=== PATIENT | female | born 1980 | race Caucasian/White ===

== ENCOUNTER 2016-09-06 09:15 | Emergency (ER) | payer OTHER ==
[~2016-09-06] VITALS: Ht 170.2 cm; Wt 92.5 kg
[2016-09-06 09:15] VITALS: BP 137/102
[~2016-09-06 09:15] MED LIST: ALLOPURINOL 30300 M2 PO; ANUCORT-HC25 MG RECTAL; BENADRYL25 MG PO; CENTRUM SILVER1 EAC4 PO; CLONAZEPAM 1 MG1 M1 PO; CLONIDINE0.1 PO; COLACE100 MG PO; DULCOLAX10 MG; EVENING PRIMRO500 MG PO; FOLIC ACID1 MG PO; GLUCOSAMINE HC500 MG PO; INVEGA SUS156 MG/1 M IM; INVEGA3 MG PO; LEVOTHYROXIN0.075 MG PO; LISINOPRIL10 MG PO; MOBIC15 MG PO; NASONEX17 GM NASAL; PAIN & FEVER325 MG PO; PROZAC20 MG PO; TRILEPTAL300 MG PO; VITAMIN B COMP1 EACH PO; ZANAFLEX4 MG PO; ZOCOR40 MG PO; ZYRTEC10 MG PO
[2016-09-06] MEDS ORDERED: NIKKI 3 MG-0.01 EACH PO (09:23)
[2016-09-06] MEDS ORDERED: TRINATE TABLET1 TAB PO (09:24)
[2016-09-06] MEDS ORDERED: CYMBALTA60 MG PO (09:25)
[2016-09-06] MEDS ORDERED: HYDROCHLOROTH12.5 M1 PO (09:26)
[2016-09-06] MEDS ORDERED: VITAMIN C1000 MG PO (09:27)
[2016-09-06] MEDS ORDERED: MUCINEX600 MG PO (09:29)
[2016-09-06] MEDS ORDERED: LOPRESSOR50 PO (09:29)
[2016-09-06] MEDS ORDERED: SAPHRIS5 MG SL (09:30)
[2016-09-06] MEDS ORDERED: SAVELLA100 MG PO (09:31)
[2016-09-06] MEDS ORDERED: VERAPAMIL ER120 M1 PO (09:32)
[2016-09-06] MEDS ORDERED: LIORESAL 10 MG10 MG PO (09:32)
[2016-09-06] MEDS ORDERED: COMBIVENT INH (09:33)
[2016-09-06] MEDS ORDERED: NEURONTIN 300300 M1 PO (09:33)
[2016-09-06] MEDS ORDERED: GUANFACINE HCL E2 MG PO (09:36)
[2016-09-06] MEDS ORDERED: MELATONIN3 M1 PO (09:37)
[2016-09-06] MEDS ORDERED: AMBIEN 5 MG TABL5 M1 PO (09:38)
[2016-09-06] MEDS ORDERED: OLANZAPINE10 M1 PO (09:38)
[2016-09-06] MEDS ORDERED: ROBAXIN 750 MG750 M1 PO (09:39)
[2016-09-06] MEDS ORDERED: MI ACID LIQUID355 ML PO (09:44)
[2016-09-06] MEDS ORDERED: MAXALT MLT ODT10 M2 PO (09:44)
[2016-09-06] MEDS ORDERED: SUMATRIPTAN SUC50 MG PO (09:45)
[2016-09-06] MEDS ORDERED: DUAC 1.2-5% GEL45 GM TP (09:45)
[2016-09-06] MEDS ORDERED: HYDROCODON-ACE1 EAC5 PO (09:46)
[2016-09-06] MEDS ORDERED: DUONEB 2.5-0.5 M3 ML INH (09:50)
[2016-09-06] MEDS ORDERED: OLANZAPINE5 MG PO (09:51)
[2016-09-06] MEDS ORDERED: NAPROSYN500 MG PO (10:44)
== END 2016-09-06 11:05 | disposition home or self-care (01) ==
LOC: ER 09:15
DX: S63.592A Other specified sprain of left wrist, initial encounter (principal); S63.682A Other sprain of left thumb, initial encounter; F31.9 Bipolar disorder, unspecified; Z98.890 Other specified postprocedural states; Z88.1 Allergy status to other antibiotic agents; Z88.5 Allergy status to narcotic agent; Z88.0 Allergy status to penicillin; Z88.8 Allergy status to other drugs, medicaments and biological substances; F17.210 Nicotine dependence, cigarettes, uncomplicated; W23.1XXA Caught, crushed, jammed, or pinched between stationary objects, initial encounter; Y93.89 Activity, other specified; Y92.098 Other place in other non-institutional residence as the place of occurrence of the external cause; Y99.8 Other external cause status